=== PATIENT | male | born 1955 | race Caucasian/White ===

== ENCOUNTER 2017-05-08 16:48 | Emergency (ER) | payer OTHER ==
[~2017-05-08] VITALS: Ht 170.2 cm; Wt 102.1 kg
[2017-05-08] MEDS ORDERED: METOPROLOL SUCC25 MG (17:49)
[2017-05-08] MEDS ORDERED: MILLIPRED5 MG (17:49)
[2017-05-08] MEDS ORDERED: SIMVASTATIN20 MG (17:50)
== END 2017-05-08 20:57 | disposition home or self-care (01) ==
LOC: ER 16:48
DX: B34.9 Viral infection, unspecified (principal)